=== PATIENT | male | born 1980 | race Caucasian/White ===

== ENCOUNTER 2018-01-07 13:19 | Emergency (ER) | payer BC, OTHER, SELFPAY ==
[2018-01-07] MEDS ORDERED: Tamsulosin HCl 0.4 MG CAP ONE (13:44)
[2018-01-07] MEDS ORDERED: Sodium Chloride 0.9% 1,000 ML ONE (13:44)
[2018-01-07] MEDS ORDERED: Ondansetron HCl/PF 4 MG/2 ML Vial ONE (13:44)
[2018-01-07] MEDS ORDERED: Ketorolac Tromethamine 30 MG/ML VIAL ONE (13:44)
[2018-01-07 14:14] LABS: Bilirubin Negative (Negative); Blood, Urine Moderate (Negative); Clarity Clear (Clear); Glucose, Urine (Dipstick) Negative (Negative); Leukocyte Negative (Negative); Nitrite Negative (Negative); Protein, Urine (Dipstick) Negative (Neg-Trace); Specific Gravity, Urine 1.015 (1.005-1.030); Urobilinogen 0.2 mg/dL (0.2-1.0); pH, Urine 5.5 (5.0-9.0)
[2018-01-07 14:19] LABS: Bacteria/HPF Rare-Few HPF (None Seen); Squamous Epithelial None Seen HPF (0-3); WBC/HPF None Seen HPF (0-3)
== END 2018-01-07 14:34 | disposition home or self-care (01) ==
LOC: NAV ERS 13:19
DX: N20.1 Calculus of ureter (principal); I10 Essential (primary) hypertension
CPT/HCPCS: 81003; 81015; 96361; 96374; 96375; J1885; J2405; J7050